=== PATIENT | female | born 1970 | race Caucasian/White ===

== ENCOUNTER 2017-07-28 23:51 | Emergency (ER) | payer MEDICAID ==
[~2017-07-28] VITALS: Ht 162.6 cm; Wt 54.4 kg
--- NOTE | 2017-07-29 | NUR ---
Placed in room 08 . Side rails up. Report given to LILA Morton.
[2017-07-29 00:05] VITALS: BP_SYST 116
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
--- NOTE | 2017-07-29 00:35 | NUR ---
ER MD METCALF AT BEDSIDE EXAMINING PATIENT.
[2017-07-29 01:50] VITALS: BP_SYST 116
--- NOTE | 2017-07-29 01:50 | NUR ---
Patient given written and verbal discharge instructions and verbalizes understanding. ER MD Kline discussed with patient the results and treatment provided. Patient in stable condition. ID arm band removed. Patient educated on pain management and to follow up with PMD. Pain Scale 1/10. Opportunity for questions provided and answered. Medication side effect fact sheet provided.
== END 2017-07-29 01:50 | disposition home or self-care (01) ==
LOC: SED 23:51
DX: S00.12XA Contusion of left eyelid and periocular area, initial encounter (principal); Z88.6 Allergy status to analgesic agent; W22.8XXA Striking against or struck by other objects, initial encounter; Y93.89 Activity, other specified; Y92.89 Other specified places as the place of occurrence of the external cause; Y99.8 Other external cause status
CPT/HCPCS: 99283

== ENCOUNTER 2018-04-02 23:53 | Emergency (ER) | payer MEDICAID ==
[~2018-04-02] VITALS: Ht 162.6 cm; Wt 54.4 kg
[2018-04-03 00:08] VITALS: BP_SYST 129
--- NOTE | 2018-04-03 00:08 | NUR ---
Patient to ER bed 7 for evaluation. Side rails up.
--- NOTE | 2018-04-03 00:30 | NUR ---
ER at bedside examining patient.
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
--- NOTE | 2018-04-03 01:14 | NUR ---
ER at bedside examining patient.
[2018-04-03 01:38] VITALS: BP_SYST 125
--- NOTE | 2018-04-03 01:38 | NUR ---
Patient given written and verbal discharge instructions and verbalizes understanding. ER MD discussed with patient the results and treatment provided. Patient in stable condition. ID arm band removed. Rx of Tramadol given. Patient educated on pain management and to follow up with PMD. Pain Scale 0/10. Opportunity for questions provided and answered. Medication side effect fact sheet provided.
== END 2018-04-03 01:38 | disposition home or self-care (01) ==
LOC: SED 23:53
DX: S20.211A Contusion of right front wall of thorax, initial encounter (principal); W22.8XXA Striking against or struck by other objects, initial encounter; Y93.89 Activity, other specified; Y92.89 Other specified places as the place of occurrence of the external cause; Y99.8 Other external cause status; Z88.6 Allergy status to analgesic agent
CPT/HCPCS: 71045; 71100; 81025; 99283

== ENCOUNTER 2020-12-11 18:11 | Emergency (ER) | payer MEDICAID ==
[~2020-12-11] VITALS: Ht 162.6 cm; Wt 58.1 kg
[2020-12-11 18:11] VITALS: BP_SYST 138
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
[2020-12-11] MEDS ORDERED: MORPHINE 4 MG INJ. 4 MG/ML VIAL IM ONE (18:45)
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
--- NOTE | 2020-12-11 19:24 | NUR ---
MEDICATED ORDERED, PT EXPRESSED SOME RELEIF
--- NOTE | 2020-12-11 19:29 | NUR ---
PATIENT OFF UNIT TO CT SCAN.
--- NOTE | 2020-12-11 19:47 | NUR ---
Patient returned from CT scan in stable condition
[2020-12-11] MEDS ORDERED: fentaNYL CITRATE/PF 100 MCG/2 ML AMP IVP ONE ×2 (21:00→22:30)
--- NOTE | 2020-12-11 21:02 | NUR ---
PATIENT MOVED TO BED 1
--- NOTE | 2020-12-11 21:20 | NUR ---
DR LAY AT BEDSIDE DISCUSSING PROCEDURE TO PATIENT TO OBTAIN CONSENT. ALL QUESTIONS ANSWERED.
--- NOTE | 2020-12-11 21:25 | NUR ---
CONSENT FOR PROCEDURE AND MODERATE SEDATION SIGNED BY PATIENT
[2020-12-11] MEDS ORDERED: KETAMINE 30 MG/3 ML SYRINGE IVP ONE (21:30)
[2020-12-11] MEDS ORDERED: PROPOFOL 200MG/ 20ML VIAL (DIPRIVAN) IV ONE ×2 (21:30→22:00)
[2020-12-11] MEDS ORDERED: PROPOFOL DRIP 100 ML IV ONE (21:32)
[2020-12-11] MEDS ORDERED: KETAMINE 30 MG/3 ML SYRINGE ONE (21:33)
[2020-12-11] MEDS ORDERED: HYDR-3917 PO (22:27)
--- NOTE | 2020-12-11 22:31 | NUR ---
MD NOTIFIED PATIENT COMPLAINING OF 10/10 AND NUMBNESS. CAP REFILL >[address]ING[address] LAY AT BEDSIDE
--- NOTE | 2020-12-11 22:35 | NUR ---
PATIENT RETURNED TO BASELINE. PATIENT AOX4 ABLE TO SPEAK FULL SENTENCES
[2020-12-11] MEDS ORDERED: fentaNYL CITRATE/PF 100 MCG/2 ML AMP ONE (22:39)
--- NOTE | 2020-12-12 00:10 | NUR ---
patient off unit to ct scan
--- NOTE | 2020-12-12 00:20 | NUR ---
patient returned from CT Scan.
[2020-12-12] MEDS ORDERED: HYDROcodone/ACETAMIN 7.5-325 MG TAB PO ONE (01:15)
--- NOTE | 2020-12-12 01:22 | NUR ---
patient requesting discharge. md notified.
--- NOTE | 2020-12-12 01:25 | NUR ---
arm sling applied to left arm. patient tolerated well.
--- NOTE | 2020-12-12 01:30 | NUR ---
carly wrap applied to left ankle. patient tolerated well
--- NOTE | 2020-12-12 01:53 | NUR ---
Dr. Kline at bedside discussing results.
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
[2020-12-12 03:24] VITALS: BP_SYST 123
--- NOTE | 2020-12-12 03:26 | NUR ---
Patient given written and verbal discharge instructions and verbalizes understanding. ER MD discussed with patient the results and treatment provided. Patient in stable condition. ID arm band removed. IV catheter removed intact and dressing applied, no active bleeding. No Rx given. Patient educated on pain management and to follow up with PMD. Pain Scale 0/10. Opportunity for questions provided and answered.
== END 2020-12-12 04:00 | disposition home or self-care (01) ==
LOC: SED 18:11
DX: S52.502A Unspecified fracture of the lower end of left radius, initial encounter for closed fracture (principal); S93.402A Sprain of unspecified ligament of left ankle, initial encounter; S30.0XXA Contusion of lower back and pelvis, initial encounter; W07.XXXA Fall from chair, initial encounter; Y93.89 Activity, other specified; Y92.89 Other specified places as the place of occurrence of the external cause; Y99.8 Other external cause status
CPT/HCPCS: 25605; 72170; 72220; 73100; 73110; 73200; 73600; 76376; 96372; 96374; 96376; 99285; J2270; J2704; J3010